=== PATIENT | female | born 1955 | race Caucasian/White ===

== ENCOUNTER 2023-04-29 08:25 | Outpatient (CLI) | payer MEDICARE, SELFPAY ==
--- NOTE | ~2023-04-29 | CT_ITS ---
EXAMINATION: CT abdomen pelvis wo/w con DATE: 04/29/2023 09:34 INDICATION: Microscopic hematuria TECHNIQUE: Computed tomography (CT) of the abdomen and pelvis was performed without and with 130 cc O mnipaque 350 intravenous contrast. The dose-length product was 1422.00 mGy-cm. Automated exposure con trol and iterative reconstruction technique were employed. COMPARISON: None. FINDINGS: Lung bases are unremarkable. Heart size normal. Small hiatal hernia. No significant pleural or pericardial effusion. No significant vascular abnormality. There are bilateral parapelvic cysts o f the kidneys. No hydronephrosis. No renal or ureteral stones. The liver, spleen, pancreas, adrenal glands are unremarkable. Gallbladder is present. Nonobstructive bowel pattern. Bladder is unremarkable. Bilateral ureteral jets are visualized. No abnormal pelvic ma sses or fluid collections. Mild lumbar spondylosis. Status post hysterectomy. IMPRESSION: 1. No acute abdominal abnormality. 2: Bilateral renal parapelvic cysts. 3: Small hiatal hernia. Reviewed, dictated and finalized at location L.
[2023-04-29 09:17] LABS: Estimated Glomerular Filt Rate 55
== END 2023-04-29 08:26 | disposition home or self-care (01) ==
PROVIDERS: PCP Internal Medicine Infectious Disease; Visit Provider Nurse Practitioner
DX: R31.29 Other microscopic hematuria (principal); K44.9 Diaphragmatic hernia without obstruction or gangrene; N28.1 Cyst of kidney, acquired
CPT/HCPCS: 74178; Q9967